=== PATIENT | female | born 1970 | race Caucasian/White ===

== ENCOUNTER 2018-12-02 17:31 | Emergency (ER) | payer MEDICAID ==
[~2018-12-02] VITALS: Ht 157.5 cm; Wt 77.6 kg
--- NOTE | 2018-12-02 18:40 | NUR ---
DR HODGE AT THE BEDSIDE FOR MSE.
[2018-12-02] MEDS ORDERED: ONDANSETRON 4 MG/2 ML VIAL IM ONE (18:45)
[2018-12-02] MEDS ORDERED: HYDROMORPHONE 1 MG/1 ML DISP.SYRIN IM ONE (18:45)
[2018-12-02] MEDS ORDERED: LIDOCAINE HCL 2% 20 ML VIAL TP ONE (18:45)
[2018-12-02] MEDS ORDERED: HYDROMORPHONE 2 MG/1 ML DISP.SYRIN ONE (18:48)
[2018-12-02] MEDS ORDERED: ONDANSETRON 4 MG/2 ML VIAL ONE (18:48)
[2018-12-02] MEDS ORDERED: CEFTRIAXONE 1 G VIAL IM ONE (19:00)
--- NOTE | 2018-12-02 19:08 | NUR ---
Female rn discharge accompanied female patient for (DR HODGE).
[2018-12-02] MEDS ORDERED: LIDOCAINE HCL 1% 20 ML VIAL ONE (19:11)
[2018-12-02] MEDS ORDERED: CEFTRIAXONE 1 G VIAL ONE (19:11)
[2018-12-02 19:18] VITALS: BP 133/78
--- NOTE | 2018-12-02 19:18 | NUR ---
Patient discharged to home in stable conditon. Written and verbal after care instructions given. Patient verbalizes understanding of instructions.
== END 2018-12-02 19:18 | disposition home or self-care (01) ==
LOC: ER 17:31
DX: N75.1 Abscess of Bartholin's gland (principal); E11.9 Type 2 diabetes mellitus without complications
CPT/HCPCS: 56420; 96372 ×3; 99283; J0696; J1170; J2405; J3490; A4663

== ENCOUNTER 2018-12-04 17:46 | Emergency (ER) | payer MEDICAID ==
[~2018-12-04] VITALS: Ht 157.5 cm; Wt 77.1 kg
[2018-12-04] MEDS ORDERED: DOXY100C2 PO (18:24)
[2018-12-04] MEDS ORDERED: CLOP75TA15 PO (18:24)
--- NOTE | 2018-12-04 18:57 | NUR ---
Dr Miller is now at beside, pending MD [email or web address].
--- NOTE | 2018-12-04 19:18 | NUR ---
Patient discharged to home in stable conditon. Pt left ER before after care instructions were given but verbalizes understanding of instructions by the doctor. Pt ambulated out of ER with steady gait, no acute signs of distress, VSS, all belongings taken.
[2018-12-04 19:21] VITALS: BP 164/91
== END 2018-12-04 19:21 | disposition home or self-care (01) ==
LOC: ER 17:46
DX: N75.1 Abscess of Bartholin's gland (principal); E11.9 Type 2 diabetes mellitus without complications; Z79.01 Long term (current) use of anticoagulants; Z79.2 Long term (current) use of antibiotics
CPT/HCPCS: A4663